=== PATIENT | female | born 1945 | race Caucasian/White ===

== ENCOUNTER → 2020-05-18 11:00 | Outpatient (CLI) | payer BC, MEDICARE, SELFPAY ==
--- NOTE | ~2020-05-18 | XR_ITS ---
XR chest 2V DATE: 05/18/2020 11:24 INDICATION: Shortness of breath TECHNIQUE: 2 views COMPARISON: 01/26/2010 two-view chest FINDINGS: Right subclavian AICD/pacemaker device with tip in right ventricle. Abandoned left sided p acemaker lead. Normal heart size. Aortic calcification. No hilar or mediastinal enlargement. No pulmonary infiltr ate or consolidation, pulmonary vascular congestion or pleural effusion or pneumothorax. Surgical clips overlying left cervical area. Right humeral head anchor device. IMPRESSION: No active cardiopulmonary disease Reviewed, dictated and finalized at location B.
== END ==
DX: J44.9 Chronic obstructive pulmonary disease, unspecified (principal)
CPT/HCPCS: 71046

== ENCOUNTER 2021-08-31 01:43 | Day surgery (SDC) | payer BC, MEDICARE, SELFPAY ==
[2021-08-31] VITALS (16 sets, daily range): BP systolic 101–133; BP diastolic 50–86; PULSE 80–104; RESP 13–18; TEMP 36.3–37; O2SAT 94–100; BMI 29.1
--- NOTE | ~2021-08-31 | XR_ITS ---
EXAMINATION: XR chest 2V DATE: 09/01/2021 07:54 INDICATION: Pacemaker insertion TECHNIQUE: PA and lateral views of the chest are obtained. COMPARISON: 08/31/2021 FINDINGS: The lungs are free of acute opacities. There is no pleural effusion or pneumothorax. The he art size is normal. There is chronic elevation of the right hemidiaphragm. A triple lead cardiac pace maker of the left chest wall ends with leads in expected locations. An orphaned AICD lead is seen on the left. There is severe thoracic spondylosis. IMPRESSION: 1. No acute cardiopulmonary abnormality. Reviewed, dictated and finalized at location A.
--- NOTE | ~2021-08-31 | XR_ITS ---
EXAMINATION: XR chest 1V portable DATE: 08/31/2021 14:26 INDICATION: Pacer lead revision. TECHNIQUE: A single frontal view of the chest was obtained. COMPARISON: Chest 2 views 05/18/2020 FINDINGS: There is worsened marked elevation of right hemidiaphragm. There is mild atelectasis at rig ht lung base. No pleural effusion or pneumothorax. The heart size is normal. There is a right chest p acer/defibrillator with leads in right atrium and right ventricle. There are 2 additional leads in ri ght ventricle. There is a suture anchor in right humeral head. Surgical clips in the right upper quad rant are likely from cholecystectomy. IMPRESSION: 1. Worsened markedly elevation of right hemidiaphragm with mild atelectasis at right lung base. Reviewed, dictated and finalized at location A.
--- NOTE | 2021-08-31 09:00 | ECG_ITS ---
Measurements Intervals [place] Rate: 80 P: 269 TN: 217 QRS: 25 QRSD: 87 T: 17 QT: 369 QTc: 428 Interpretive Statements SINUS OR ECTOPIC ATRIAL RHYTHM BASELINE WANDER- AVR, V4-V6 BORDERLINE ECG Electronically Signed On 08-31-2021 14:29:12 CDT by Souleymane Corley D.O.
[2021-08-31 10:15] LABS: Basophils Absolute Auto 0.1 K/mm3 (0.0-0.1); Basophils Percent Auto 0.5 % (0.2-1.2); Eosinophils Absolute Auto 0.9 K/mm3 (0-0.3); Eosinophils Percent Auto 8.2 % (0-4.4); Hemoglobin 8.6 g/dL (12.0-15.0); Immature Granulocyte Absolute 0.05 K/mm3 (0.00-0.031); Immature Granulocyte Percent A 0.5 % (0-0.5); Lymphocytes Absolute Auto 1.19 K/mm3 (0.9-3.2); Lymphocytes Percent Auto 11.2 % (18.3-44.2); Mean Corpuscular HGB Conc 30.7 g/dl (32-36); Mean Corpuscular Volume 91.2 fl (80-100); Mean Platelet Volume 10.3 fl (7.4-10.4); Monocytes Absolute Auto 0.9 K/mm3 (0.1-0.6); Neutrophils Absolute Auto 7.6 K/mm3 (1.3-6.7); Neutrophils Percent Auto 71.6 % (45.5-73.1); Platelet Count Result 286 k/mm3 (150-375); Red Blood Count 3.07 M/mm3 (4.2-5.4); Red Cell Distribution Width 15.5 % (11.5-14.5); White Blood Count 10.6 K/mm3 (4.5-10.0)
--- NOTE | 2021-08-31 10:24 | WPDHPUPDATE1 ---
History and Physical Update Update Date/Time: 08/31/21 10:24 Patient has a history of an ICD implant many years ago. In 2009 she had an impending RV lead fracture but the left subclavian vein was occluded so Dr. Freeman implanted a new single lead device on the right side. We received an urgent alert that the high-voltage lead had extremely low impedance suggesting lead malfunction. Patient is here for a venogram, lead revision, generator change, and implantation of an atrial lead as well because she has a history of paroxysmal atrial fibrillation and we need better monitoring of the atrial arrhythmias. She is feeling well today. History and Physical has been reviewed, including an updated exam of the patient. There are NO changes in the patient's condition. Risks, benefits, and alternatives have been discussed and questions answered. Patient agrees to proceed with procedure. Reviewed risks of pacemaker/ICD implant with patient. These include breathing problems, allergic reactions, bleeding, infection, pneumothorax, cardiac puncture, need for unanticipated surgery, lead dislodgement among others.
[2021-08-31 10:28] LABS: Anion Gap 5 mmol/L (8-16); Blood Urea Nitrogen 14 mg/dL (7-17); Calcium 8.8 mg/dL (8.4-10.2); Carbon Dioxide 33 mmol/L (22-30); Chloride 106 mmol/L (98-107); Estimated CRCL calculation 43 ml/min; Estimated Glomerular Filt Rate > 60; Glucose 102 mg/dL (65-110); Potassium 4.1 mmol/L (3.4-5.0); Sodium 144 mmol/L (137-145)
--- NOTE | 2021-08-31 10:34 | WPDMODSED ---
Moderate Sedation Note-Pt Data Patient Data Diagnosis: ICD lead malfunction Patient has a history of an ICD implant many years ago. In 2009 she had an impending RV lead fracture but the left subclavian vein was occluded so Dr. Freeman implanted a new single lead device on the right side. We received an urgent alert that the high-voltage lead had extremely low impedance suggesting lead malfunction. The ICD itself has a for of months longevity so that will be replaced. Patient is here for a venogram, lead revision, generator change, and implantation of an atrial lead as well because she has a history of paroxysmal atrial fibrillation and we need better monitoring of the atrial arrhythmias. She is feeling well today. Present Complaint: ICD lead malfunction Procedure to be performed/Plan: Conscious sedation Venogram Implantation of a new right ventricular lead and right atrial lead Pulse generator change Allergies Allergy/AdvReac Type Severity Reaction Status Date / Time No Known Allergies Allergy Verified 08/31/21 10:00 Home Medications Medication Instructions Recorded Confirmed Type Neurin Bc 20 mg PO DAILY 08/31/21 08/31/21 History Nexium 20 mg PO DAILY 08/31/21 08/31/21 History amitriptyline 25 mg PO HS 08/31/21 08/31/21 History aspirin 325 mg PO DAILY 08/31/21 08/31/21 History atorvastatin 10 mg PO HS 08/31/21 08/31/21 History budesonide-formoterol [Symbicort] 2 puff INHALATION BID 08/31/21 08/31/21 History diclofenac sodium 75 mg PO TID 08/31/21 08/31/21 History diltiazem HCl 180 mg PO DAILY 08/31/21 08/31/21 History duloxetine 60 mg PO DAILY 08/31/21 08/31/21 History esomeprazole magnesium [Nexium] 20 mg PO DAILY 08/31/21 08/31/21 History lisinopril 10 mg PO DAILY 08/31/21 08/31/21 History quetiapine 50 mg PO HS 08/31/21 08/31/21 History tiotropium bromide [Spiriva with See Rx Instructions .ROUTE .COMPLEX 08/31/21 08/31/21 History HandiHaler] Sedation/Anesthesia: No previous sedation/anesthesia problems (including family history). [facility] Past Medical History Medical History (Updated 08/31/21 @ 10:43 by Komal Harris MD) Asthma Cerebral aneurysm Chronic occlusion of left subclavian vein Noted in 2009 during attempted ICD lead revision Chronic pain COPD (chronic obstructive pulmonary disease) H/O implanted metallic device Morphine pump right buttock History of atrial fibrillation Hyperlipidemia Hypertension Nonsustained ventricular tachycardia Syncope Surgical History Surgical History (Updated 08/31/21 @ 10:43 by Komal Harris MD) H/O right hemicolectomy 08/2021 had right hemicolectomy, cholecystectomy, hernia repair complicated by hemoperitoneum requiring reexploration, [facility] Hx of cholecystectomy 08/2021 had right hemicolectomy for bowel obstruction, cholecystectomy and hernia repair complicated by hemoperitoneum, [facility] Social History Social History (System 06/13/20 @ 10:42 by Ellyn Chaves) Smoking status: Former smoker Smoking end date: 11/10/86 Alcohol intake: never Mod Sed Physical Exam Physical Exam Pre Procedural Exam: Normal: Appearance, Eyes, Ears, Nose, Neck, Throat, Airway, Lungs, Heart Size, Heart Rate, Heart Rhythm (Heart murmur), Neuro Exam, Genitalia, Extremities and Skin (Well-healed left sided ICD incision) and Variation: Abdomen (Healing midline surgical scar, with ceasar) Hours since solid foods: 12 Hours since liquid intake: 12 Mallampati Classification: class III Internal Medicine - PN: Obj Da Vital Signs Vital Signs: Vital Signs - 24 hr 08/31/21 10:13 Temperature 98.6 F Pulse Rate 96 Respiratory Rate 18 Blood Pressure 112/54 L Pulse Oximetry 97 Labs CBC & Chem 7: 08/31/21 09:35 08/31/21 09:35 Labs: Laboratory Results - last 24 hr 08/31/21 08/31/21 09:35 09:35 WBC 10.6 H RBC 3.07 L Hgb 8.6 L Hct 28.0 L MCV 91.2 MCH 28.0 MCHC 30.7 L RDW 15.5 H
--- NOTE | 2021-08-31 10:39 | SUR.PREOP ---
aware of labs
--- NOTE | 2021-08-31 11:00 | PM.IMHP ---
H&P: HPI History of Present Illness Date/Time: 08/31/21 11:00 Chief Complaint: Malfunction of ICD lead Narrative: Patient has a history of an ICD implant many years ago. In 2009 she had an impending RV lead fracture but the left subclavian vein was occluded so Dr. Freeman implanted a new single lead device on the right side. We received an urgent alert that the high-voltage lead had extremely low impedance suggesting lead malfunction. Patient is here for a venogram, lead revision, generator change, and implantation of an atrial lead as well because she has a history of paroxysmal atrial fibrillation and we need better monitoring of the atrial arrhythmias. She is feeling well today. Earlier this month patient was hospitalized in [place] and had apparently a small-bowel obstruction. She had a hemicolectomy, cholecystectomy and hernia repair which was complicated by hemoperitoneum requiring reexploration. During that hospitalization she had ICD discharge which appears to be an inappropriate discharge due to an episode of atrial fibrillation. She did convert to sinus rhythm. Review of Systems Constitutional: Constitutional: Denies fatigue and Denies weakness Eyes: Eyes: Reports no additional eye complaints ENT: Denies epistaxis Cardiovascular: Cardiovascular: Denies chest pain and Denies lightheadedness Respiratory: Respiratory: Denies cough and Reports dyspnea Gastrointestinal: Gastrointestinal: Denies abdominal pain Comments: Still recovering from abdominal surgery Genitourinary: Genitourinary: Denies hematuria Musculoskeletal: Musculoskeletal: Reports back pain Integumentary/Breasts: Skin/Breast: Reports wounds ( recent exploratory laparotomy) Neurologic: Reports system reviewed and no additional complaints, except as documented Psychiatric: Psychiatric: Reports no additional psychiatric complaints [facility] Past Medical History Medical History (Updated 08/31/21 @ 11:06 by Komal Harris MD) Asthma Cerebral aneurysm Chronic occlusion of left subclavian vein Noted in 2009 during attempted ICD lead revision Chronic pain COPD (chronic obstructive pulmonary disease) H/O implanted metallic device Morphine pump right buttock History of atrial fibrillation Hyperlipidemia Hypertension Nonsustained ventricular tachycardia Syncope Surgical History Surgical History (Updated 08/31/21 @ 10:43 by Komal Harris MD) H/O right hemicolectomy 08/2021 had right hemicolectomy, cholecystectomy, hernia repair complicated by hemoperitoneum requiring reexploration, [facility] Hx of cholecystectomy 08/2021 had right hemicolectomy for bowel obstruction, cholecystectomy and hernia repair complicated by hemoperitoneum, [facility] Social History Social History (Updated 08/31/21 @ 11:03 by Komal Harris MD) Social History: has a daughter locally and a daughter in [place]. Plans on moving to [facility] in the next several weeks. Smoking status: Former smoker Smoking end date: 11/10/86 Alcohol intake: never Meds Home Medications and Allergies Home Medications Medication Instructions Recorded Confirmed Type Neurin Bc 20 mg PO DAILY 08/31/21 08/31/21 History Nexium 20 mg PO DAILY 08/31/21 08/31/21 History amitriptyline 25 mg PO HS 08/31/21 08/31/21 History aspirin 325 mg PO DAILY 08/31/21 08/31/21 History atorvastatin 10 mg PO HS 08/31/21 08/31/21 History budesonide-formoterol [Symbicort] 2 puff INHALATION BID 08/31/21 08/31/21 History diclofenac sodium 75 mg PO TID 08/31/21 08/31/21 History diltiazem HCl 180 mg PO DAILY 08/31/21 08/31/21 History duloxetine 60 mg PO DAILY 08/31/21 08/31/21 History esomeprazole magnesium [Nexium] 20 mg PO DAILY 08/31/21 08/31/21 History lisinopril 10 mg PO DAILY 08/31/21 08/31/21 History quetiapine 50 mg PO HS 08/31/21 08/31/21 History tiotropium bromide [Spiriva with See Rx Instructions .ROUTE .COMPLEX 08/31/21 08/31/21 History Ras
--- NOTE | 2021-08-31 13:38 | PM.OP ---
Procedure Note - Brief Procedure Note - Brief Date of procedure: 08/31/21 Pre-op diagnosis: VILMA Procedure performed: Sedation Venogram Implantation of a new dual chamber ICD Description of procedure: uneventful procedure Anesthesia: local ( with conscious sedation) Surgeon: Komal Harris MD Complications: No immediate complications Condition: stable Disposition: observation Findings: stenosed right subclavian vein
--- NOTE | 2021-08-31 13:59 | W.PM.PROC2 ---
Procedure Note - Detailed Date of Procedure 08/31/21 Pre-op Diagnosis ICD RV lead malfunction Post-op Diagnosis same Procedure Performed Conscious sedation Venogram Explant of existing pulse generator and capping of malfunctioning right ventricular lead Implantation of a dual-chamber ICD . Surgeon Komal Harris MD Anesthesia local ( with conscious sedation) Indications Patient has a history of an ICD implant many years ago for nonsustained ventricular tachycardia and history of syncope. (I believe she was noninducible at the time. ) In 2009 she had an impending [employer] RV lead fracture but the left subclavian vein was occluded so Dr. Belcher implanted a new single lead [place]/Her device on the right side. This week we received an urgent alert that the high-voltage lead had extremely low impedance suggesting lead malfunction. The impedance was 10-15 Ohms , suggesting the defibrillator lead has an insulation problem and is unreliable, and needs urgent revision. The pulse generator has only 4 months of longevity so that will be replaced as well. Patient is here for a venogram, RV lead revision, generator change, and implantation of an atrial lead as well because she has a history of paroxysmal atrial fibrillation and inappropriate ICD discharges, and we need better monitoring of the atrial arrhythmias. She is feeling well today. Earlier this month patient was hospitalized in [place] and had apparently a small-bowel obstruction. She had a hemicolectomy, cholecystectomy and hernia repair which was complicated by hemoperitoneum requiring reexploration. During that hospitalization she had ICD discharge which appears to be an inappropriate discharge due to an episode of atrial fibrillation. She did convert to sinus rhythm. She had another ICD discharge around 2011 which may have been inappropriate, but since there was no atrial lead it was hard to distinguish if this was ventricular tachycardia or atrial fibrillation. Findings Stenosis of the right subclavian vein Description of Procedure PROCEDURE PERFORMED: Conscious sedation Venogram Explant of old pulse generator and capping of malfunctioning defibrillator lead Placement of a permanent dual-chamber [employer] [place] medical /Her ICD SITE: right prepectoral area MEDICATIONS GIVEN IN INDUSTRIAL LOCOMOTIVE OPERATOR: Ancef 1 gram IV piggyback CONSCIOUS SEDATION: Assessment: The patient has no history of anesthesia problems. The patient's oropharynx is clear. The patient was deemed to be a good candidate for conscious sedation. The patient had continuous hemodynamic monitoring during the procedure. Start time: 10 09 Completion time: 1329 Total conscious sedation time: 119 minutes Medications: Versed 6 mg, fentanyl 125 mcg IV push Trained observer: Hien Merlos RN Outcome: The patient tolerated the procedure well with no complications. PROCEDURE: After informed consent , the patient was brought to the laborer powerhouse and the right prepectoral area was prepped and draped in usual fashion . The patient received preop antibiotic and conscious sedation . The left prepectoral area was anesthetized with lidocaine . A venogram was performed showing the course of the right subclavian vein, which was stenosed near the high voltage lead coil There appeared to be a lot of collaterals but some antegrade flow. The right subclavian vein was accessed with the micropuncture technique, and a J-tip guide wire was passed into the inferior vena cava under fluoroscopic guidance . The needle was withdrawn . A 2nd wire was introduced in an identical fashion. Next a skin incision was made and carried down to the prepectoral fascia. Hemostasis was obtained using electrocautery . The capsule incised and the existing defibrillator pulse generator was removed from the pocket. The lead was examined and no
[2021-08-31] MEDS: FUROSEMIDE INJ 40 MG/4 ML VIAL IV PUSH (15:00)
--- NOTE | 2021-08-31 15:01 | ADMGEN ---
This patient, Qiana Matthews, was admitted to EXTENDED RECOVERY POST OUTPATIENT PROCEDURE (ICD GENERATOR AND LEAD CHANGE W/ DR. TAYLOR). REMAINS IN PHYSICIAN PRESIDENT 5 AT THIS TIME. SEE PHASE II DOCUMENTATION FOR PREVIOUS CHARTING. Patient/family oriented to hospital policies and general routines including ID bracelet, bed and alarms, visiting hours, pain management, procedures, bathroom and other care routines, personal items, smoking policy, room service/diet, and visiting hours. Information on how to activate the Rapid Response Team has been discussed. Patient/Family are encouraged to report perceived risks to care and to ask questions if they do not understand what they are told or what they should do.
--- NOTE | 2021-08-31 15:11 | SUR.PHASEII ---
Phase 2 documentation ends at 1500. See PCS charting for further documentation.
[2021-08-31] MEDS: DICLOFENAC SOD 75 MG TABLET.EC PO (18:42)
--- NOTE | 2021-08-31 19:35 | PC.NURSE ---
REPORT GIVEN TO ANDREA GARCIA ON 2ND MEDICAL/TELE. PT. TO CONTINUE OVERNIGHT EXTENDED RECOVERY STAY IN 258 ON TELE MONITOR.
--- NOTE | 2021-08-31 19:50 | PC.NURSE ---
TRANSFERRED TO MED/TELE ROOM 258 VIA BED. DENIES PAIN OR SOB. AQUACELL AG DRESSING C/D/I TO R. UPPER CHEST. SITE SOFT, NO EDEMA. COLOR AND TEMP OF SITE WNL. SLING ON R. ARM. R. RADIAL PULSE STRONG AND SENSATION AND MOVEMENT R. HAND WNL. HAS HAD APPROX 2000ML URINE OUTPUT POST 1500 40MG IV LASIX DOSE. HAVE EXPLAINED AND REINFORCED R. ARM MOVEMENT AND BEDREST RESTRICTIONS W/ PT. VOICES UNDERSTANDING.
[2021-08-31] MEDS: ATORVASTATIN 10 MG TABLET PO (20:24)
[2021-08-31] MEDS: AMITRIPTYLINE HCL 25 MG TABLET PO (20:24)
[2021-08-31] MEDS: QUEtiapine FUMARATE 25 MG TABLET 50 MG PO (20:24)
[2021-09-01] VITALS: BP 119/52; PULSE 100; PULSE 99; RESP 16; TEMP 36.5; O2SAT 96
[2021-09-01 04:00] VITALS: PULSE 91
[2021-09-01 05:38] VITALS: BP 121/50; PULSE 82; RESP 14; TEMP 36.5; O2SAT 98
[2021-09-01 08:00] VITALS: BP 133/71; PULSE 92; RESP 16; TEMP 36.7; O2SAT 96
[2021-09-01] MEDS: lisinopriL 10 MG TABLET PO (08:24)
[2021-09-01] MEDS: DULoxetine HCL 60 MG CAPSULE.DR PO (08:24)
[2021-09-01] MEDS: dilTIAZem HCL CD 180 MG CAP.ER.24H PO (08:24)
[2021-09-01] MEDS: ASPIRIN 325 MG TABLET PO (08:24)
[2021-09-01] MEDS: PANTOPRAZOLE 40 MG TABLET PO (08:24)
[2021-09-01] MEDS: DICLOFENAC SOD 75 MG TABLET.EC PO (08:24)
[2021-09-01 08:35] VITALS: PULSE 98
--- NOTE | 2021-09-01 08:45 | PM.DS ---
DS: Admitting Diagnosis Discharge Date 09/01/2021 Admitting Diagnosis Explant of existing pulse generator and capping of malfunctioning right ventricular lead Implantation of a dual-chamber ICD DS: Discharge Diagnosis Discharge Diagnosis (1) Malfunction of implantable defibrillator ventricular (ICD) lead: Code(s): T82.198A - Other mechanical complication of other cardiac electronic device, initial encounter Status: Acute (2) Paroxysmal atrial fibrillation: Code(s): I48.0 - Paroxysmal atrial fibrillation Status: Acute (3) Nonsustained paroxysmal ventricular tachycardia: Code(s): I47.2 - Ventricular tachycardia Status: Acute DS: Summary Hospital Course Hospital Course: patient was admitted for pulse generator explant and implant. See procedure report by Dr. Harris for full details. She did well overnight. ICD check on day of discharge showed normal functioning device. Interrogation performed through device fuels sales representative. Chest x-ray shows no pneumothorax on day of discharge. She was feeling well and radial home. No chest pain, shortness breath, syncope, presyncope, paroxysmal nocturnal dyspnea, orthopnea, edema palpitations. She did well overnight Status at Discharge Functional status at discharge: independent ambulation Time Spent with Patient Time attestation: Total time spent providing and/or coordinating discharge services: Time spent: Less than 30 minutes Exam Narrative: alert oriented appears to be in no acute distress appears stated age. Const: General: no acute distress HENMT: General nose exam: Normal nares present Eyes: General: appearance normal, both eyes and all related structures Neck: Neck: no JVD Resp: Auscultation: clear to auscultation bilaterally Cardio: Rate: regular rate GI: Inspection: non-distended GI Palp: Yes Soft to palpation Skin: General skin exam: normal color Neuro: Motor exam (neuro): Normal motor muscle tone present throughout Extrem: General: normal to inspection Psych: Mental Status: mental status grossly normal DS: Data Data Completed and Pending Labs on day of discharge: Labs from last 24 hours 08/31/21 08/31/21 08/31/21 09:35 09:35 09:35 WBC 10.6 H RBC 3.07 L Hgb 8.6 L Hct 28.0 L MCV 91.2 MCH 28.0 MCHC 30.7 L RDW 15.5 H Plt Count 286 MPV 10.3 Immature Gran % (Auto) 0.5 Neut % (Auto) 71.6 Lymph % (Auto) 11.2 L [place] % (Auto) 8.0 Eos % (Auto) 8.2 H Baso % (Auto) 0.5 Lymph # (Auto) 1.19 [place] # (Auto) 0.9 H Eos # (Auto) 0.9 H Baso # (Auto) 0.1 Abs Immat Gran (auto) 0.05 H Absolute Neuts (auto) 7.6 H Absolute Nucleated RBC 0.0 Nucleated RBC % 0.0 PT Cancelled INR Cancelled Sodium 144 Potassium 4.1 Chloride 106 Carbon Dioxide 33 H Anion Gap 5 L BUN 14 Creatinine 0.90 Estim Creat Clear Calc 43 Estimated GFR > 60 Glucose 102 Calcium 8.8 Discharge Plan Discharge Patient Disposition: Home, Self-Care Discharge Instructions: Follow up appointment for an incision check and check of your ICD is scheduled at Dr. Harris's office for Friday 1:30 September 07. Please arrive 15 minutes early for registration. A prescription for an antibiotic, cephalexin, has been sent to your pharmacy, [facility] in [place]. Please start it on Friday. NOTE: Your chest Xray showed you are not breathing deep on the right side, and the lower part of your right lung was not fully expanded, perhaps leftover from pain last week? Practice deep breathing and coughing to open up your lung on the right side. INCISION CARE: Keep the special Aquacel bandage on the incision until it is removed next week by [facility] nurses. Do not touch the incision. Do not apply any ointments, lotions or creams to the incision. Do not get the incision wet for 1 week. No showering above the waist for 1 week until kesha
== END 2021-09-01 11:30 | disposition home or self-care (01) ==
LOC: ANHCATHLAB 09:16 → ANHCPC 15:11 → ANH2MED 20:23
PROVIDERS: PCP Family Medicine; Visit Provider Internal Medicine Cardiovascular Disease
PROC: 0JH608Z Insertion of Defibrillator Generator into Chest Subcutaneous Tissue and Fascia, Open Approach (ICD-10-PCS; CPT 33249; principal; 2021-08-31 10:30)
DX: T82.190A Other mechanical complication of cardiac electrode, initial encounter (principal); I48.0 Paroxysmal atrial fibrillation; I47.2 Ventricular tachycardia; I82.B22 Chronic embolism and thrombosis of left subclavian vein; Y83.8 Other surgical procedures as the cause of abnormal reaction of the patient, or of later complication, without mention of misadventure at the time of the procedure; J44.9 Chronic obstructive pulmonary disease, unspecified; I10 Essential (primary) hypertension; E78.5 Hyperlipidemia, unspecified; Z90.49 Acquired absence of other specified parts of digestive tract; Z79.82 Long term (current) use of aspirin
CPT/HCPCS: 33249; 36415; 71045; 71046; 80048; 85025; 93005; 94640; A9270; C1721; C1777; C1898; J0690; J1940; J2250; J3010; J7040